=== PATIENT | female | born 1970 | race African-American/Black ===

== ENCOUNTER 2020-08-21 16:42 | Outpatient (CLI) | payer MEDICARE, SELFPAY ==
--- NOTE | ~2020-08-21 | XR_ITS ---
XR lumbar spine 2-3V DATE: 08/21/2020 17:20 INDICATION: Low back pain radiating to right hip for one month. No acute injury. TECHNIQUE: AP, lateral, coned lateral lumbosacral views COMPARISON: None FINDINGS: Diffuse osteopenia. The lumbar vertebrae are normally aligned. No fracture or bone destruction. The lumbar pedicles are i ntact. No spondylolisthesis. There is prominent loss of height at the L5-S1 interspace. The lumbar interspaces otherwise appear we ll preserved. The sacroiliac joints appear normal. A prominent amount of fecal material is noted in the rectum and colon. Approximately 9 mm probable calcified gallstone overlies the right upper quadrant. IMPRESSION: Prominent loss of intervertebral disc height at L5-S1 Diffuse osteopenia Probable cholelithiasis Reviewed, dictated and finalized at location [facility]
== END 2020-08-21 16:43 | disposition home or self-care (01) ==
DX: M85.88 Other specified disorders of bone density and structure, other site (principal)
CPT/HCPCS: 72100